=== PATIENT | male | born 1980 | race Caucasian/White ===

== ENCOUNTER 2017-12-14 07:10 | Emergency (ER) | payer SELFPAY ==
--- NOTE | 2017-12-14 07:40 | ED ---
Throat Pain/Nasal Congestion - HPI Summary HPI Summary: 37 y.o. male presents w/ Rt sided facial swelling about the maxillary sinus x 1 day. Pressure - does not radiate. 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 Denies fever, chills, nasal congestion, rhinorrhea, ST, otalgia, ALONSO, dysphagia, rash, visual change/pain, dizziness, dental pain/discharge. Tried hot pack and "cold medicine " last night w/o relief. NOTE: denies h/o HTN - History of Current Complaint Chief Complaint: EDGeneral Time Seen by Provider: 12/14/17 07:19 Hx Obtained From: Patient - Allergies/Home Medications Allergies/Adverse Reactions: Allergies Allergy/AdvReac Type Severity Reaction Status Date / Time No Known Allergies Allergy Verified 12/14/17 07:22 PMH/Surg Hx/FS Hx/Imm Hx Previously Healthy: Yes Endocrine/Hematology History: Denies: Hx Diabetes, Hx Thyroid Disease Cardiovascular History: Denies: Hx Hypertension Respiratory History: Denies: Hx Asthma, Hx Chronic Obstructive Pulmonary Disease (COPD), Hx Seasonal Allergies, Hx Sleep Apnea GI History: Denies: Hx Ulcer EENT History: Reports: Other - recurrent sinusitis Infectious Disease History: No Infectious Disease History: Denies: Hx Hepatitis, Hx Human Immunodeficiency Virus (HIV), Traveled Outside the [place] in Last 30 Days - Family History Known Family History: Positive: Cardiac Disease - grandfather - ID at 60, Diabetes - father - type 2 - Social History Occupation: Employed Full-time Lives: With Family Alcohol Use: Occasionally Alcohol Amount: rare Substance Use Type: Reports: Marijuana Substance Use Comment - Amount & Last Used: 12/13/17 Hx Tobacco Use: Yes Smoking Status (MU): Current Every Day Smoker Amount Used/How Often: 2 packs per week since teens Review of Systems Constitutional: Negative Negative: Fever, Chills, Fatigue Eyes: Negative ENT: Other - cheek swelling Negative: Sore Throat, Ear Ache, Nasal Discharge Cardiovascular: Negative Respiratory: Negative Gastrointestinal: Negative Positive: no symptoms reported Skin: Other - cheek red Negative: Rash, Bruising Neurological: Negative Psychological: Normal All Other Systems Reviewed And Are Negative: Yes Physical Exam Triage Information Reviewed: Yes Vital Signs On Initial Exam: Initial Vitals Temp Pulse Resp BP Pulse Ox 98.7 F 86 16 161/97 97 12/14/17 07:13 12/14/17 07:13 12/14/17 07:13 12/14/17 07:13 12/14/17 07:13 Vital Signs Reviewed: Yes Appearance: Positive: Well-Appearing, No Pain Distress, Obese Skin: Positive: Warm, Skin Color Reflects Adequate Perfusion, Dry - Rt cheek w/ mild erythema, edema Head/Face: Positive: Other - Rt maxillary sinus TTP - frontal and Lt maxillary NTTP Eyes: Positive: Normal, EOMI, CHERRY, Conjunctiva Clear. Negative: Conjunctiva Inflammed, Discharge ENT: Positive: Pharynx normal Diagnostics - Vital Signs Vital Signs Temp Pulse Resp BP Pulse Ox 12/14/17 07:13 98.7 F 86 16 161/97 97 - Laboratory Lab Statement: Any lab studies that have been ordered have been reviewed, and results considered in the medical decision making process. Discharge - Discharge Plan Condition: Stable Disposition: HOME Prescriptions: Amoxicillin/Clavulanate TAB* [Augmentin TAB 875*] 875 mg PO BID #20 tab Mometasone Furoate [Nasonex] 2 spray BOTH NARES DAILY PRN #1 bottle PRN Reason: Congestion Patient Education Materials: Rhinosinusitis (ED), Hypertension (ED) Referrals: [facility] [Outside] Additional Instructions: You appear to have an allergic rhinosinusits. This may be relieved with supportive care at this time. Try the following: Nasal wash (netti pot or saline spray) Nasonex has been sent to your pharmacy as well - if this is not available, you may purchase flonase over the counter To loosen mucous, try mucinex - take with plenty of water and avoid before bed to prevent post nasal drip Use cough drops with menthol for decongestion Try a facial steam with or without eucalyptus essential oil or Pepe's Vapor rub for congestion Avoid smoke, candles, perfumes, colognes, scented soaps/detergents , air fresheners and cleaning chemicals Additinally you may try: Salt water throat gargles 2 x day Drink you body weight in ounces of water every day Sleep 8+ hours per night Avoid Dairy and sugar Hot herbal/decaf tea with lemon & honey Chicken broth (preferably organic, free range chicken) An antibiotic has been sent to your pharmacy. This should not be used unless your symptoms persist for 10 days or are much worse before then, you develop a fever, etc. If you need the antibiotic, start probiotics in between antibiotics (ie. Yogurt and/or capsules of L. acidophilus, L. bifidus, L. casei, etc) to prevent diarrhea *If worse, follow-up with PCP or return to ED NOTE: your Blood pressure was found to be elevated today. This could be a 1 time event hoewver it is important that you have this rechecked in the next day or so. If it continues to be elevated > 140/90, seek follow-up with a PCP or call [facility] for an appointment. If you develop visual change, headache , chest pain, jaw pain, or shortness of breat in the meantime, return to the ED - Billing Disposition and Condition Condition: STABLE Disposition: Home
[2017-12-14 08:18] VITALS: BP 141/103
== END 2017-12-14 08:18 | disposition home or self-care (01) ==
LOC: ED 07:10
DX: I10 Essential (primary) hypertension (principal); J32.9 Chronic sinusitis, unspecified; Z82.49 Family history of ischemic heart disease and other diseases of the circulatory system; Z83.3 Family history of diabetes mellitus; F17.210 Nicotine dependence, cigarettes, uncomplicated
CPT/HCPCS: 99282